=== PATIENT | female | born 1980 | race African-American/Black ===

== ENCOUNTER 2017-12-11 18:18 | Emergency (ER) | payer SELFPAY | END 2017-12-11 18:49 | disposition home or self-care (01) | LOC: E/R 18:18 | DX: S16.1XXA Strain of muscle, fascia and tendon at neck level, initial encounter (principal); X58.XXXA Exposure to other specified factors, initial encounter; Y92.9 Unspecified place or not applicable | CPT/HCPCS: 99283 ==